=== PATIENT | female | born 1975 | race Hispanic/Latino ===

== ENCOUNTER 2018-11-07 09:47 | Outpatient (CLI) | payer OTHER ==
--- NOTE | 2018-11-07 10:54 | XRay Report ---
LEFT HIP, 2 views: History: Pain. No comparison. There is normal bone mineralization. There is moderate joint space narrowing of the left hip consistent with osteoarthritis. There appears to be heterotopic bone formation superior and posterior to the left femoral neck. This is presumably secondary to previous trauma or healed fracture. No acute fracture is appreciated. No suspicious bony lesion or osteonecrosis is appreciated. IMPRESSION: Moderate osteoarthritis. There is heterotopic bone formation adjacent to the left femoral neck which is presumably secondary to previous trauma or healed fracture. Please correlate with the patient's history.
--- NOTE | 2018-11-07 10:56 | XRay Report ---
LUMBOSACRAL SPINE, FIVE VIEWS: HISTORY: Pain. No comparison. Normal bone mineralization. There is moderate dextrocurvature to the lumbar spine. Moderate degenerative disc disease is noted at L1-2, L2-3 and L4-5. There is diffuse moderate facet arthropathy. No compression deformity or bone lesion is identified. The sacrum and SI joints are unremarkable. IMPRESSION: Scoliosis with moderate degenerative change as described. No acute process is identified.
== END 2018-11-07 09:48 | disposition home or self-care (01) ==
LOC: XRAY 09:47
PROVIDERS: ATTEND Clinical Nurse Specialist Adult Health
DX: M47.817 Spondylosis without myelopathy or radiculopathy, lumbosacral region (principal); M41.87 Other forms of scoliosis, lumbosacral region; M16.12 Unilateral primary osteoarthritis, left hip
CPT/HCPCS: 72110